=== PATIENT | female | born 1955 | race Caucasian/White ===

== ENCOUNTER 2017-07-01 11:29 | Emergency (ER) | payer OTHER ==
[2017-07-01 11:34] VITALS: TEMP 98.1; O2SAT 98
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
[2017-07-01 14:16] VITALS: BP 126/68; PULSE 78; RESP 18
== END 2017-07-01 14:18 | disposition home or self-care (01) ==
DX: S32.502A Unspecified fracture of left pubis, initial encounter for closed fracture (principal); S50.312A Abrasion of left elbow, initial encounter; S80.212A Abrasion, left knee, initial encounter; V18.9XXA Unspecified pedal cyclist injured in noncollision transport accident in traffic accident, initial encounter; Y92.480 Sidewalk as the place of occurrence of the external cause; Y99.8 Other external cause status; Y93.89 Activity, other specified